=== PATIENT | male | born 1985 | race Caucasian/White ===

== ENCOUNTER 2017-04-22 16:33 | Emergency (ER) | payer BC ==
--- NOTE | ~2017-04-22 | CT2 ---
[facility]. [facility] A Service of [facility] & [facility] RADIOLOGY TEXT RESULTS PATIENT: MICHELLE HAN LOCATION: SED : 81 UNIT #: [id number] AGE: [address]: Oc Maldonado MD SEX: M ORDER DR: [id number] [place] [id number] MR#: [id number] Acc #: [id number] NAME: MICHELLE HAN : 1985 SEX: M STUDY DATE/TIME: 04/22/2017 18:49 UNIT: SED ROOM: STUDY DESCRIPTION: CT Abd and Pelv W Cont Attending Physician: Oc Maldonado M.D. Ordering Physician: Blas Garcia M.D. Primary Care Physician: Yadira Guajardo M.D. MEDICAL IMAGING REPORT This report is preliminary unless electronic signature is present. EXAM CT abdomen and pelvis with contrast; 04/22/2017, 1849 hours. CLINICAL HISTORY 32-year-old with altered respirations, possible dehydration today. COMPARISON CT abdomen, 08/14/2009. TECHNIQUE Dynamic helical CT images were obtained from the lung bases through the pubic symphysis with oral and intravenous contrast. Isovue-370 100 mL IV. Total exam DLP 1331 mGy-cm. This CT exam was performed with one or more of the following radiation dose reduction techniques: automatic exposure control, adjustment of mA and/or kV according to patient size, and iterative reconstruction. FINDINGS Images through the lung bases demonstrate no pleural effusion. There is a noncalcified nodule laterally in the right lower lobe on the first image of this exam measuring up to 5 mm. A questioned second nodule is raised in the right middle lobe just anterior to this. This area is not included in the field of view on the comparison CT. Given the patient's age, benign noncalcified granuloma is favored. However, if the patient has a history of malignancy, consider follow-up chest CT. Images through the abdomen with contrast demonstrate a normal-sized liver. There is no focal liver lesion. The spleen, pancreas, gallbladder and bile ducts are normal. The pancreatic duct is normal. The adrenal glands are normal. The kidneys enhance normally. There is no mass or stones seen. No obstruction. No ureteral calculi. The bladder is moderately well STS. [facility] A Service of [facility] RADIOLOGY TEXT RESULTS PATIENT: MICHELLE HAN LOCATION: [facility] [place] : 81 UNIT #: [id number] AGE: [address]: Oc Maldonado MD SEX: M ORDER DR: distended. No bladder wall thickening or bladder stone. The stomach is contracted unopacified but appears normal. The small bowel is moderately well opacified with contrast and appears unremarkable. There is a retrocecal appendix which is normal in appearance. The colon is nondistended. There is no colonic wall thickening. CT PELVIS: Negative. Bone window images demonstrate no bone lesion or fracture. Lumbar spine is negative. IMPRESSION 1. Negative CT scan of the abdomen and pelvis. 2. There is a 5 mm noncalcified nodule at the right lung base which is indeterminate. Given the patient's age group, this is likely a noncalcified granuloma. A questioned second nodule is raised in the right middle lobe incompletely imaged on this exam. This area of lung is not included on prior CT abdomen 08/14/2009. In this age group, no follow up would be required per LungRADS criteria unless the patient has a history of prior malignancy and is at risk for metastatic disease. 3. Normal appendix. 4. Normal enhancement of the kidneys. No renal or ureteral calculi. No bowel obstruction. Dictated by... Adelita Key M.D. THIS IS AN ELECTRONICALLY VERIFIED REPORT Adelita Key M.D. at 04/24/2017 8:41 AM Jennifer TD: 04/23/2017 13:00 JOB #: [id number] MEDICAL IMAGING REPORT Page 1 of 1
[~2017-04-22 16:33] MED LIST: BACTRIM DS TABL1 TA1 PO; BACTRIM DS TABL1 TA2 PO; BENTYL20 MG PO; LORTAB 7.5-5001 TAB; NO MEDICATIONS; OMEPRAZOLE40 MG PO; PREVACID PO
[2017-04-22 17:37] LABS: BASOPHIL% 0.1 % (0-2.5); HEMATOCRIT 41.4 % (38.0-50.0); LYMPHOCYTE# 1.4 X10e3 (1.0-3.5); LYMPHOCYTE% 6.2 % (17.0-45.0); MEAN CELL VOLUME 95.9 FL (83-96); MEAN CORPUSCULAR HEMOGLOBIN 32.4 PG (28-34); MEAN CORPUSCULAR HGB CONC 33.8 g/dL (30-36); MEAN PLATELET VOLUME 8.7 FL (6.5-11.5); MONOCYTE% 4.6 % (3.0-12.0); NEUTROPHIL# 20.2 X10e3 (1.5-7.1); NEUTROPHIL% 89.1 % (40-75); PLATELET COUNT 251 X10e3 (140-420); RED BLOOD COUNT 4.31 X10e (3.90-5.60); WHITE BLOOD COUNT 22.7 X10e3 (4.0-10.5)
[2017-04-22 17:47] LABS: DIFF IND YES
[2017-04-22 18:00] LABS: ALBUMIN SERUM 4.6 g/dL (3.5-5.0); BILIRUBIN, DIRECT 0.4 mg/dL (0.0-0.2); BILIRUBIN,INDIRECT 1.9 mg/dL (0.0-0.9); BILIRUBIN,TOTAL 2.3 mg/dL (0.2-2.0); CALCIUM SERUM 9.2 mg/dL (8.4-10.2); GLOM FILT RATE Estimated 97.8 mL/min (>60); POTASSIUM 3.6 mmol/L (3.5-5.1); PROTEIN TOTAL SERUM 7.4 g/dL (6.0-8.3)
[2017-04-22 18:04] LABS: PLATELET ESTIMATE NORMAL (NORMAL); RBC NORMAL YES
[2017-04-22 19:32] LABS: URINE SOURCE CLEAN CATCH
[2017-04-22 19:34] LABS: URINE APPEARANCE CLEAR; URINE BILIRUBIN NEG (NEG); URINE BLOOD NEG (NEG); URINE COLOR YELLOW; URINE GLUCOSE NEG (NORM); URINE LEUKOCYTE ESTERASE NEG (NEG); URINE NITRATE NEG (NEG); URINE PROTEIN NEG (NEG); URINE SPECIFIC GRAVITY <=1.005 (1.003-1.035); URINE UROBILINOGEN 0.2 MG/DL (NORM)
[2017-04-22 19:37] LABS: MICRO INDICATED? NO; URINE KETONE 2+ (NEG)
== END 2017-04-22 19:56 | disposition home or self-care (01) ==
LOC: SED 16:33
PROVIDERS: Emergency Medicine
DX: A08.4 Viral intestinal infection, unspecified (principal); K21.9 Gastro-esophageal reflux disease without esophagitis
CPT/HCPCS: 36415; 74177; 80048; 80076; 81003; 83605; 83690; 85025; 87040; 96361; 96374; 96375; 99284; C9113; J1885; J2405; Q9967